=== PATIENT | female | born 1960 | race African-American/Black ===

== ENCOUNTER 2017-05-22 23:05 | Emergency (ER) | payer OTHER, SELFPAY ==
[2017-05-23] LABS: Bacteria/HPF 4+ HPF (None Seen); Bilirubin Small (Negative); Blood, Urine Trace (Negative); Glucose, Urine (Dipstick) Negative (Negative); Ketone, Urine Negative (Negative); Nitrite Negative (Negative); Protein, Urine (Dipstick) 100 mg/dL (Neg-Trace); Squamous Epithelial 21-50 HPF (0-3); Urobilinogen 0.2 mg/dL (0.2-1.0)
[2017-05-23 00:05] LABS: Hyaline Casts/LPF NONE SEEN LPF (0-3 Hyaline); RBC/HPF 0-3 HPF (0-3)
[2017-05-23 00:12] LABS: Hematocrit 44.6 % (36.0-47.0); Red Blood Cell (RBC) Count 3.94 mill/uL (4.20-5.40); White Blood Cell (WBC) Count 4.1 thou/uL (4.8-10.8)
[2017-05-23 00:21] LABS: #Lymphocytes 0.9 thou/uL (1.20-3.40); #Monocytes 0.3 thou/uL (0.11-0.59); #Neutrophils 2.9 thou/uL (1.40-6.50); %Basophils 0.2 % (0.0-1.0); %Eosinophils 0.5 % (0.0-10.0); %Lymphocytes 22.5 % (21.0-51.0); %Monocytes 6.4 % (0.0-10.0); Macrocytosis SLIGHT = 6-15 cells (100X) (0-5/hpf)
[2017-05-23 00:30] LABS: ALT (SGPT) 67 U/L (8-55); AST (SGOT) 132 U/L (5-34); Alkaline Phosphatase 84 U/L (40-150); Anion Gap 16 mmol/L (10-20); BUN (Urea Nitrogen) 6 mg/dL (9.8-20.1); Bilirubin, Total 1.3 mg/dL (0.2-1.2); Calc. Creatinine Clearance 0 mL/min (70-130); Calcium 10.2 mg/dL (7.8-10.44); Carbon Dioxide 32 mmol/L (22-29); Chloride 95 mmol/L (98-107); Estimated GFR-MDRD Greater than 90; Globulin 5.3 g/dL (2.4-3.5); Lipase 13 U/L (8-78); Protein, Total 9.5 g/dL (6.0-8.3)
[2017-05-23] MEDS ORDERED: Ondansetron HCl/PF 4 MG/2 ML Vial ONE (01:43)
[2017-05-23] MEDS ORDERED: Ketorolac Tromethamine 30 MG/ML VIAL ONE (02:51)
--- NOTE | 2017-05-23 08:12 | CT ---
PRELIMINARY REPORT/[facility]/EMERGENCY AFTER HOURS PROCEDURE: EXAM: CT Abdomen and Pelvis With Intravenous Contrast CLINICAL HISTORY: 56 years old, female; Pain; Abdominal pain; Generalized TECHNIQUE: Axial computed tomography images of the abdomen and pelvis with intravenous contrast. Coronal reformatted images were created and reviewed. CONTRAST: 100 mL of ISOVUE administered intravenously. COMPARISON: No relevant prior studies available. FINDINGS: Lower thorax: Moderate-sized hiatal hernia. ABDOMEN: Liver: Nodular hepatic peripheral contour, compatible with cirrhosis. Gallbladder and bile ducts: Normal. Pancreas: Normal. Spleen: Normal. Adrenals: Normal. Kidneys and ureters: Simple left renal cyst. Stomach and bowel: Colonic diverticulosis. Appendix: Appendix is normal. PELVIS: Bladder: Normal. Reproductive: Normal as visualized. ABDOMEN and PELVIS: Intraperitoneal space: Normal. No free air. No significant fluid collection. Bones/joints: Multilevel thoracolumbar spine degenerative changes. Degenerative changes of the hips and sacroiliac joints. No acute fracture. No dislocation. Soft tissues: Small fat containing umbilical hernia. Vasculature: Normal. No abdominal aortic aneurysm. Lymph nodes: Normal. IMPRESSION: 1. No acute findings. 2. Non-acute findings are described above. Thank you for allowing us to participate in the care of your patient. Dictated and Authenticated by: Misbah Trujillo MD 05/23/2017 1:38 AM Central Time ([place] \T\ [place]) FINAL REPORT EMERGENT AFTER HOURS CT ABDOMEN AND PELVIS WITH IV CONTRAST: DATE: 05/23/17. HISTORY: Abdominal pain with nausea, vomiting, and diarrhea. IMPRESSION: 1. Mild nodular hepatic contour. This can be seen with cirrhosis. 2. Small approximately 1.8 cm left renal cyst. 3. Colonic diverticulosis. 4. No CT evidence of appendicitis. 5. Small hiatal hernia. 6. Degenerative changes of the spine. 7. Findings are in agreement with the preliminary report by [facility]. POS: [facility]
--- NOTE | 2017-05-23 08:14 | ULT ---
PRELIMINARY REPORT/[facility]/EMERGENCY AFTER HOURS PROCEDURE: EXAM: US Abdomen Limited, Right Upper Quadrant CLINICAL HISTORY: 56 years old, female; Pain and signs and symptoms; Nausea and vomiting; Abdominal pain; Epigastric TECHNIQUE: Real-time ultrasound of the right upper quadrant with image documentation. COMPARISON: CT Abdomen Pelvis W Valente 2017-05-23 01:19 FINDINGS: Liver: Mild enlarged liver, nodular peripheral contour, compatible with cirrhosis. No focal hepatic lesions. No intrahepatic bile duct dilation. Gallbladder: Gallbladder wall measures 2 mm in thickness. No gallstones. Common bile duct: Common bile duct measures 5 mm in maximal diameter. No stones. No dilation. Pancreas: Pancreatic head and body appear unremarkable. Pancreatic tail not well-visualized, seconda ry to overlying bowel gas. Right kidney: Right kidney is normal in appearance and measures 10.7 cm in length. No stones. No hyd ronephrosis. IMPRESSION: 1. No sonographic evidence of acute right upper abdominal abnormality. 2. Cirrhosis. Thank you for allowing us to participate in the care of your patient. Dictated and Authenticated by: Misbah Trujillo MD 05/23/2017 2:54 AM Central Time ([place] \T\ [place]) FINAL REPORT EMERGENT AFTER HOURS RIGHT UPPER QUADRANT ULTRASOUND: DATE: 05/23/17. HISTORY: Abnormal laboratory values, epigastric pain. IMPRESSION: 1. Hepatomegaly with nodular peripheral contour seen suggesting cirrhosis. 2. No gallbladder calculi are seen, and the common duct is normal in caliber measuring 0.5 cm in di ameter. 3. The right kidney has a normal sonographic appearance measuring 10.7 cm in length. 4. Findings are in agreement with the preliminary report by [facility]. POS: [facility]
[2017-05-23] MEDS ORDERED: ISOVUE-370 76%-LOCM 1 ML ONE (13:26)
== END 2017-05-23 03:26 | disposition home or self-care (01) ==
LOC: ERS 23:05
DX: R10.13 Epigastric pain (principal); E11.9 Type 2 diabetes mellitus without complications; I10 Essential (primary) hypertension; F32.9 Major depressive disorder, single episode, unspecified; F41.9 Anxiety disorder, unspecified; Z79.84 Long term (current) use of oral hypoglycemic drugs; Z79.899 Other long term (current) drug therapy
CPT/HCPCS: 36415; 74177; 76705; 80053; 81003; 81015; 83690; 85025; 93005; 96374; 96375; J1885; J2405

== ENCOUNTER 2017-05-31 05:17 | Emergency (ER) | payer SELFPAY ==
[2017-05-31] MEDS ORDERED: Ondansetron HCl/PF 4 MG/2 ML Vial ONE (06:07)
[2017-05-31] MEDS ORDERED: Metoclopramide HCl 10 MG/2 ML VIAL ONE (06:37)
[2017-05-31] MEDS ORDERED: Dicyclomine 20 MG TAB ONE (06:37)
[2017-05-31 06:45] LABS: #Lymphocytes 0.8 thou/uL (1.20-3.40); #Monocytes 0.2 thou/uL (0.11-0.59); #Neutrophils 3.5 thou/uL (1.40-6.50); %Basophils 0.2 % (0.0-1.0); %Eosinophils 0.3 % (0.0-10.0); %Lymphocytes 17.6 % (21.0-51.0); Band 1 % (5-11); Hematocrit 45.4 % (36.0-47.0); Mean Platelet Volume 7.8 fL (7.4-10.4); Neutrophil 81 % (42-75); Red Blood Cell (RBC) Count 4.11 mill/uL (4.20-5.40); White Blood Cell (WBC) Count 4.5 thou/uL (4.8-10.8)
[2017-05-31 06:48] LABS: ALT (SGPT) 70 U/L (8-55); AST (SGOT) 144 U/L (5-34); Alkaline Phosphatase 86 U/L (40-150); Anion Gap 19 mmol/L (10-20); BUN (Urea Nitrogen) 9 mg/dL (9.8-20.1); Bilirubin, Total 1.6 mg/dL (0.2-1.2); Calc. Creatinine Clearance 0 mL/min (70-130); Calcium 9.6 mg/dL (7.8-10.44); Carbon Dioxide 25 mmol/L (22-29); Chloride 100 mmol/L (98-107); Estimated GFR-MDRD 79; Globulin 5.4 g/dL (2.4-3.5); Lipase 11 U/L (8-78); Protein, Total 9.7 g/dL (6.0-8.3)
[2017-05-31 08:15] LABS: Bilirubin Unable to Interpret (Negative); Blood, Urine Unable to Interpret (Negative); Glucose, Urine (Dipstick) Unable to Interpret mg/dL (Negative); Ketone, Urine Unable to Interpret mg/dL (Negative); Nitrite Unable to Interpret (Negative); Protein, Urine (Dipstick) Unable to Interpret mg/dL (Neg-Trace); Urobilinogen UNABLE TO INTERPRET mg/dL (0.2-1.0)
[2017-05-31 08:22] LABS: Bacteria/HPF None Seen HPF (None Seen); Hyaline Casts/LPF 0-3 HYALINE CAST LPF (0-3 Hyaline); RBC/HPF 0-3 HPF (0-3); Renal Epithelial 0-3 HPF (0-3); Transitional Epithelial 0-3 HPF (0-3); WBC/HPF 0-3 HPF (0-3); Yeast-All Forms None Seen HPF (None Seen)
== END 2017-05-31 08:58 | disposition home or self-care (01) ==
LOC: ERS 05:17
DX: R10.12 Left upper quadrant pain (principal); R10.11 Right upper quadrant pain; E11.9 Type 2 diabetes mellitus without complications; F32.9 Major depressive disorder, single episode, unspecified; F41.9 Anxiety disorder, unspecified; I10 Essential (primary) hypertension; Z79.84 Long term (current) use of oral hypoglycemic drugs; Z79.899 Other long term (current) drug therapy
CPT/HCPCS: 36415; 36416; 80053; 81003; 81015; 83690; 85025; 96361; 96365; 96375; J2405; J2765

== ENCOUNTER 2017-08-11 22:29 | Emergency (ER) | payer SELFPAY ==
--- NOTE | 2017-08-11 23:12 | RAD ---
CHEST ONE VIEW 08/11/17 HISTORY: Cough. COMPARISON: None. FINDINGS: Heart size is upper limits of normal. No pneumothorax. No focal air space consolidation. No acute osseous abnormality. IMPRESSION: Mild cardiomegaly. POS: [facility]
[2017-08-11 23:23] LABS: Hemoglobin 13.9 g/dL (12.0-16.0); Mean Corpuscular HGB CONC 32.9 g/dL (32.0-36.0); Mean Corpuscular Hemoglobin 37.4 pg (27.0-31.0); Mean Platelet Volume 7.6 fL (7.4-10.4); Platelet Count 216 thou/uL (130-400); RBC Distribution Width 14.3 % (11.5-14.5); Red Blood Cell (RBC) Count 3.72 mill/uL (4.20-5.40); White Blood Cell (WBC) Count 4.2 thou/uL (4.8-10.8)
[2017-08-11 23:29] LABS: ALT (SGPT) 58 U/L (8-55); AST (SGOT) 143 U/L (5-34); Albumin 4.2 g/dL (3.5-5.0); Alkaline Phosphatase 90 U/L (40-150); Anion Gap 22 mmol/L (10-20); BUN (Urea Nitrogen) 6 mg/dL (9.8-20.1); Bilirubin, Total 1.3 mg/dL (0.2-1.2); Calc. Creatinine Clearance 0 mL/min (70-130); Calcium 10.1 mg/dL (7.8-10.44); Carbon Dioxide 24 mmol/L (22-29); Chloride 98 mmol/L (98-107); Estimated GFR-MDRD Greater than 90; Globulin 5.1 g/dL (2.4-3.5); Glucose 108 mg/dL (70-105); Lipase 11 U/L (8-78); Protein, Total 9.3 g/dL (6.0-8.3); Sodium 140 mmol/L (136-145)
[2017-08-11 23:41] LABS: #Lymphocytes 0.7 thou/uL (1.20-3.40); #Monocytes 0.2 thou/uL (0.11-0.59); #Neutrophils 3.2 thou/uL (1.40-6.50); %Basophils 0.2 % (0.0-1.0); %Eosinophils 0.3 % (0.0-10.0); %Lymphocytes 17.4 % (21.0-51.0); %Monocytes 5.6 % (0.0-10.0); %Neutrophils 76.6 % (42.0-75.0); MDiff Complete? YES; Macrocytosis MODERATE=16-30 cells (100X) (0-5/hpf); PLT Morphology Comment Appears Adequate
[2017-08-11 23:56] LABS: CKMB 0.7 ng/mL (0-6.6); Troponin I Less than 0.010 ng/mL (< 0.028)
[2017-08-12] MEDS ORDERED: diphenhydrAMINE 50 MG/ML VIAL ONE (00:42)
[2017-08-12] MEDS ORDERED: Fentanyl 100 MCG/2 ML VIAL ONE (00:42)
[2017-08-12] MEDS ORDERED: Metoclopramide HCl 10 MG/2 ML VIAL ONE (00:42)
--- NOTE | 2017-08-12 13:53 | ULT ---
PRELIMINARY REPORT/[facility]/EMERGENCY AFTER HOURS PROCEDURE: EXAM: US Abdomen Limited, Right Upper Quadrant CLINICAL HISTORY: 57 years old, female; Abnormal findings; Abnormal lab test; Elevated liver enzymes and other: Hepatom egaly TECHNIQUE: Real-time ultrasound of the right upper quadrant with image documentation. COMPARISON: No relevant prior studies available. FINDINGS: Liver: Liver is enlarged at 20.1 cm and demonstrates diffuse fatty infiltration. No solid mass is priscilla ntified. No intrahepatic bile duct dilation. Gallbladder: No acute findings. No gallstones. Common bile duct: 4 mm. Unremarkable as visualized. No stones. No dilation. Pancreas: Unremarkable as visualized. Right kidney: No acute findings. No stones. No solid mass. No hydronephrosis. IMPRESSION: Enlarged, fatty liver. No gallstones or biliary dilation. Thank you for allowing us to participate in the care of your patient. Dictated and Authenticated by: Dariusz Navarrete MD 08/12/2017 2:51 AM Central Time ([place] & [place]) FINAL REPORT GALLBLADDER ULTRASOUND: FINDINGS/IMPRESSION: I agree with the preliminary interpretation provided. No acute gallbladder pathology. Increased echogenicity of the liver, which can be seen secondary to hepatic steatosis. Correlate cli nically. POS: [facility]
--- NOTE | 2017-09-01 22:41 | EKG ---
Test Reason : Blood Pressure : / mmHG Vent. Rate : 094 BPM Atrial Rate : 094 BPM P-R Int : 142 ms QRS Dur : 078 ms QT Int : 370 ms P-R-T Axes : 062 -07 002 degrees QTc Int : 462 ms Normal sinus rhythm Minimal voltage criteria for LVH, may be normal variant Possible Inferior infarct , age undetermined Possible Anterior infarct , age undetermined Abnormal ECG Confirmed by CASI WARNER ([id number]), data specialist GEOVANNI TYSON ([id number]) on 09/01/2017 10:40:36 PM Referred By: Confirmed By:CASI WARNER
== END 2017-08-12 03:20 | disposition home or self-care (01) ==
LOC: ERS 22:29
DX: E11.43 Type 2 diabetes mellitus with diabetic autonomic (poly)neuropathy (principal); K31.84 Gastroparesis; I10 Essential (primary) hypertension; F32.9 Major depressive disorder, single episode, unspecified; F41.9 Anxiety disorder, unspecified; Z79.899 Other long term (current) drug therapy
CPT/HCPCS: 36416; 71045; 76705; 80053; 82553; 83690; 84484; 85025; 87804; 93005; 96365; 96366; 96375; J1200; J2765; J3010

== ENCOUNTER 2017-10-25 08:12 | Observation (INO) | payer SELFPAY ==
[2017-10-25] MEDS ORDERED: Mag-Al 1200 mg/1200 mg/30 ML UDCUP ONE (10:02)
[2017-10-25] MEDS ORDERED: Lidocaine Viscous Sol 2% 15 ml UD Cup ONE (10:02)
[2017-10-25 10:03] LABS: Hemoglobin 13.7 g/dL (12.0-16.0); Mean Corpuscular HGB CONC 33.1 g/dL (32.0-36.0); Mean Corpuscular Hemoglobin 37.7 pg (27.0-31.0); Platelet Count 271 thou/uL (130-400); RBC Distribution Width 13.9 % (11.5-14.5); Red Blood Cell (RBC) Count 3.63 mill/uL (4.20-5.40); White Blood Cell (WBC) Count 3.5 thou/uL (4.8-10.8)
[2017-10-25 10:13] LABS: ALT (SGPT) 56 U/L (8-55); AST (SGOT) 125 U/L (5-34); Alkaline Phosphatase 95 U/L (40-150); Anion Gap 18 mmol/L (10-20); BUN (Urea Nitrogen) 4 mg/dL (9.8-20.1); Bilirubin, Total 0.7 mg/dL (0.2-1.2); Calc. Creatinine Clearance 0 mL/min (70-130); Calcium 9.7 mg/dL (7.8-10.44); Carbon Dioxide 27 mmol/L (22-29); Chloride 103 mmol/L (98-107); Estimated GFR-MDRD Greater than 90; Potassium 3.7 mmol/L (3.5-5.1); Sodium 144 mmol/L (136-145)
[2017-10-25 10:17] LABS: Glucose 51 mg/dL (70-105)
[2017-10-25 10:26] LABS: #Lymphocytes 1.1 thou/uL (1.20-3.40); #Monocytes 0.1 thou/uL (0.11-0.59); #Neutrophils 2.2 thou/uL (1.40-6.50); %Basophils 0.6 % (0.0-1.0); %Eosinophils 0.8 % (0.0-10.0); %Lymphocytes 32.3 % (21.0-51.0); %Monocytes 3.6 % (0.0-10.0); %Neutrophils 62.6 % (42.0-75.0); MDiff Complete? YES; Macrocytosis SLIGHT = 6-15 cells (100X) (0-5/hpf)
[2017-10-25] MEDS ORDERED: Ondansetron HCl/PF 4 MG/2 ML Vial ONE (10:56)
[2017-10-25 11:15] LABS: Bilirubin Negative (Negative); Blood, Urine Negative (Negative); Glucose, Urine (Dipstick) Negative (Negative); Leukocyte Negative (Negative); Nitrite Negative (Negative); Protein, Urine (Dipstick) 30 mg/dL (Neg-Trace)
[2017-10-25 11:20] LABS: Clarity Clear (Clear)
[2017-10-25 11:36] LABS: Bacteria/HPF None Seen HPF (None Seen); Hyaline Casts/LPF 0-3 HYALINE CAST LPF (0-3 Hyaline); RBC/HPF 0-3 HPF (0-3); WBC/HPF 0-3 HPF (0-3)
[2017-10-25] MEDS ORDERED: Dextrose 50% Abboject 50 ML SYRINGE ONE (11:48)
[2017-10-25] MEDS ORDERED: Dextrose 5% in Water 1,000 ML IV PRN (11:50)
[2017-10-25] MEDS ORDERED: HumaLOG 300 UNITS/3 ML VIAL SC PRN ×2 (11:50)
[2017-10-25] MEDS ORDERED: HYDROcodone/Acetaminophen 5/325 mg Tablet PO PRN (11:50)
[2017-10-25 12:13] LABS: Hemoglobin A1c 5.1 % (4.0-6.0)
[2017-10-25] MEDS ORDERED: Acetaminophen 325 MG TAB PO PRN (13:31)
[2017-10-25 13:32] VITALS: BMI 49.1
[2017-10-25] MEDS: Dextrose 10% in Water 1,000 ML IV SCH (14:41)
[2017-10-25] MEDS: Dextrose 50% Abboject 50 ML SYRINGE SLOW IVP PRN ×2 (15:51→19:45)
[2017-10-25] MEDS: Ondansetron HCl/PF 4 MG/2 ML Vial IVP PRN ×2 (16:40→23:06)
--- NOTE | 2017-10-25 17:04 | HP ---
DATE OF CONSULTATION: 10/25/2017 CHIEF COMPLAINT: Low blood sugars at home. HISTORY OF PRESENT ILLNESS: This is a 57-year-old morbidly obese female. She has k nown history of type 2 diabetes mellitus, on oral hypoglycemic and glipizide. She usually takes glip izide in the morning at around 7:00 a.m. at breakfast, but yesterday evening she took around 4:00 p.m . instead of morning and she went to her brother's house and had a dinner over there and when she ret urned home, she fell asleep in the morning and she was very lethargic and was sweating and having pal pitations. She is unable to talk and she was having slurred speech, and with increased sweating, she decided to call 911 and was unable to call after struggling to dial for a couple of minutes. Once t he EMS arrived, the patient was found to have blood sugars in 50s and she was immediately given orang e juice and was brought to the ER. The patient had a persistent drop in the blood sugars even in the ER even on 5% dextrose and D50 was also given. Her blood sugars went up to 80 and she remained symp tomatic. The patient was admitted with 10% dextrose and was closely monitored. The patient has a kn own history of hypertension and hyperlipidemia, both are well controlled. She is morbidly obese and she is trying to lose weight and she has bilateral knee replacements, and trying to walk and lose gigi ght. PAST MEDICAL HISTORY: 1. Type 2 diabetes mellitus. 2. Morbid obesity. 3. Hypertension. 4. Hyperlipidemia. PAST SURGICAL HISTORY: Bilateral knee replacement. SOCIAL HISTORY: No history of smoking. She does drink alcohol occasionally. No history of illicit drug use. She lives by herself. FAMILY HISTORY: No significant family history of coronary artery disease or premature deaths in the family. ALLERGIES: No known drug allergies. HOME MEDICATIONS: Omeprazole 10 mg p.o. daily, glipizide 5 mg p.o. daily, enalapril 10 mg p.o. daily , hydrochlorothiazide 25 mg p.o. daily. REVIEW OF SYSTEMS: All 12 systems are reviewed with the patient thoroughly and found to be negative at this time. Systems reviewed are HEENT, CVS, ME[employer]ING TE[employer]ER, respiratory, GI, and . All other systems revi ewed and found to be negative. Constitutional: Weight loss or gain, sense of well-being, ability to conduct usual activities, exerc ise tolerance. Skin/Breast: Rash, itching, changes in hair growth or loss, nail changes, breast lumps, tenderness, swelling, nipple discharge. Eyes: Vision, double vision, tearing, blind spots, pain. ENT/Mouth: Headaches (location, time of onset, duration, precipitating factors), vertigo, lightheadedness, injury. Vision, double vision, tearing, blind spots, pain, nose b leeding, colds, obstruction, discharge, dental difficulties, gingival bleeding, dentures, neck stiffn ess, pain, tenderness, masses in thyroid or other areas Cardiovascular: Precordial pain, substernal distress, palpitations, syncope, dyspnea on exertion, or thopnea, nocturnal paroxysmal dyspnea, edema, cyanosis, hypertension, heart murmurs, varicosities, ph lebitis, claudication. Respiratory: Pain, shortness of breath, wheezing, stridor, cough, hemoptysis, fever or night sweats Gastrointestinal: Poor appetite, dysphagia, indigestion, abdominal pain, heartburn, eructation, naus ea, vomiting, hematemesis, jaundice, constipation, or diarrhea, abnormal stools (otto-colored, tarry, bloody, greasy, foul smelling), flatulence, hemorrhoids, recent changes in bowel habits. Genitourinary: Urgency, frequency, dysuria, nocturia, hematuria, polyuria, oliguria, unusual (or susie nge in) color of urine, stones, hesitancy, change in size of stream, dribbling, acute retention or in continence, libido, potency. Musculoskeletal: Pain, swelling, redness or heat of muscles or joints, limitation, of motion, muscular weakness, atrophy, cramps. Neurologic/Psychiatric: Convulsions, paralyses, tremor, incoordination, parasthesias, difficulties w ith memory of speech, sensory or motor disturbances, or muscular coordination (ataxia, tremor), emoti onal problems, anxiety, depression, previous psychiatric care, unusual perceptions, hallucinations. Allergy/Immunologic: Skin rash, anemia, bleeding tendency, polydipsia, polyuria, intolerance to heat or cold. PHYSICAL EXAMINATION: VITAL SIGNS: Blood pressures are 146/81, heart rate is 85, respiration is 18, saturation 98% on room air. GENERAL: The patient is moderately built, moderately nourished, she does not appear to be in acute d istress. CARDIOVASCULAR: S1, S2 normal. No murmurs, rubs or gallops. LUNGS: Bilateral entry was equal. No wheezing, no crackles. ABDOMEN: Soft, nontender, no guarding, no rebound tenderness. Bowel sounds normal. MUSCULOSKELETAL: No calf tenderness. No pedal edema. No joint tenderness, no joint swelling. SKIN: No cyanosis, no erythema. Rash was noted on the right upper nostril, has a scaly appearance m ost likely looks like atopic dermatitis. PSYCHIATRIC: No signs of suicidal ideation. No signs of rob. No signs of depression. NECK: No thyromegaly. No lymphadenopathy was noted. LABORATORY DATA: WBC 23.5, hemoglobin 13.7, hematocrit is 41.4, platelets are 271. Sodium 144, pota ssium 3.7, chloride 103, bicarbonate 27, BUN is 4, creatinine 0.6. Blood sugars are 57. His elevated liver enzymes, AST of 125, ALT of 56. ASSESSMENT AND PLAN: 1. Acute severe hypoglycemia. 2. Morbid obesity. 3. Elevated liver enzymes. 4. Hypertension. 5. Hyperlipidemia. PLAN: 1. Plan is to continue the patient on D10 at this time at 75 mL an hour and we will closely monitor and for any hypoglycemic episodes, we will treat with hypoglycemia protocol with 50% dextrose. We wi ll hold off on the glipizide at this time and also metformin. Plan to restart glipizide in the [facility] if the blood sugars are adequately elevated with a lower dose. I will encourage the patient to us e metformin for lesser hypoglycemic effects and the patient is morbidly obese, which would be the priscilla al medication for her. We will do a diabetic education with the nurse. 2. The patient is morbidly obese. We encouraged the patient to walk and lose weight for better cont rol of blood sugars. 3. The patient has hypertension, well controlled. We will continue to monitor. Restart the patient 's home medications. 4. Hyperlipidemia. We will continue the patient on atorvastatin. 5. DVT prophylaxis with Lovenox. I spent 75 minutes of this patient.
[2017-10-25] MEDS: Docusate 100 MG CAP PO SCH (20:31)
[2017-10-25] MEDS ORDERED: Famotidine 20 MG TAB PO SCH (21:00)
--- NOTE | 2017-10-25 21:17 | RAD ---
RADIOGRAPH ABDOMEN 1 VIEW: 10/25/17 HISTORY: 57-year-old female with intractable nausea. FINDINGS: the stomach is decompressed. There is a minimal amount of bowel gas in the right lower quadrant, prob ably in the proximal right colon. Small amount of gas in the lower pelvis near midline is probably in the rectum. Otherwise, there is lack of bowel gas. IMPRESSION: Paucity of bowel gas makes it difficult to evaluate the intestines. POS: [facility]
[2017-10-25] MEDS ORDERED: hydrALAZINE 20 MG/ML VIAL SLOW IVP PRN (21:23)
[2017-10-25] MEDS ORDERED: Promethazine HCl 25 MG/ML VIAL SLOW IVP SCH (21:30)
--- NOTE | 2017-10-25 21:36 | ULT ---
GALLBLADDER ULTRASOUND: 10/25/17 Reference made to 08/12/17. INDICATION: Increased liver enzymes. FINDINGS: There is redemonstration of coarsened echotexture of the hepatic parenchyma with increased echogenici ty. Persistent areas of shadowing do limit visualization of the right upper quadrant. There is no def inite acute gallbladder pathology seen. There are low level echoes of the gallbladder which could rel ate to reverberation artifact. Possibility of gallbladder sludge is not excluded. Gallbladder wall is normal at 1 mm in thickness. Common duct is normal measuring 4 mm in diameter. There is no significa nt ascites. IMPRESSION: Grossly stable evaluation, with findings that may reflect hepatic steatosis and/or component of hepat ocellular disease. There is no acute gallbladder pathology. POS: [facility]
[2017-10-25] MEDS ORDERED: Pantoprazole 40 MG VIAL IVP SCH (23:45)
[2017-10-26] MEDS ORDERED: Promethazine HCl 25 MG/ML VIAL SLOW IVP PRN
[2017-10-26] MEDS: Morphine 5 MG/ML SYRINGE SLOW IVP PRN ×2 (00:51→05:28)
[2017-10-26] MEDS: Dextrose 10% in Water 1,000 ML IV SCH ×2 (02:15→08:59)
[2017-10-26 04:37] LABS: Anion Gap 15 mmol/L (10-20); BUN (Urea Nitrogen) 4 mg/dL (9.8-20.1); Calc. Creatinine Clearance 171 mL/min (70-130); Calcium 9.7 mg/dL (7.8-10.44); Carbon Dioxide 31 mmol/L (22-29); Chloride 96 mmol/L (98-107); Estimated GFR-MDRD Greater than 90; Glucose 180 mg/dL (70-105); Potassium 3.5 mmol/L (3.5-5.1); Sodium 138 mmol/L (136-145)
[2017-10-26 04:55] LABS: Band 2 % (5-11); Hemoglobin 13.4 g/dL (12.0-16.0); Lymphocytes 20 % (21-51); MDiff Complete? YES; Mean Corpuscular HGB CONC 32.2 g/dL (32.0-36.0); Mean Corpuscular Hemoglobin 37.4 pg (27.0-31.0); Mean Platelet Volume 7.4 fL (7.4-10.4); Monocytes 2 % (0-10); Neutrophil 76 % (42-75); Nucleated RBC 2 % (0); PLT Morphology Comment Appears Adequate; Platelet Count 238 thou/uL (130-400); RBC Distribution Width 13.7 % (11.5-14.5); Red Blood Cell (RBC) Count 3.58 mill/uL (4.20-5.40); White Blood Cell (WBC) Count 4.9 thou/uL (4.8-10.8)
[2017-10-26] MEDS: Ondansetron HCl/PF 4 MG/2 ML Vial IVP PRN (05:21)
[2017-10-26] MEDS: Docusate 100 MG CAP PO SCH (08:57)
[2017-10-26] MEDS ORDERED: Hydrochlorothiazide 25 MG TAB PO SCH (09:00)
[2017-10-26] MEDS ORDERED: Pantoprazole 40 MG VIAL IVP SCH ×2 (09:00→21:00)
[2017-10-26] MEDS ORDERED: Enoxaparin Sodium 40 MG/0.4 ML SYRINGE SC SCH (09:00)
[2017-10-26 11:01] VITALS: BP 130/60; TEMP 99
--- NOTE | 2017-10-26 12:57 | DIS ---
DATE OF ADMISSION: 10/25/2017 DATE OF DISCHARGE: 10/26/2017 ADMITTING DIAGNOSIS: Acute hypoglycemia. DISCHARGE DIAGNOSIS: Acute symptomatic hypoglycemia from type 2 diabetes mellitus. SECONDARY DIAGNOSES 1. Hypertension, uncontrolled. 2. Morbid obesity. 3. Fungal infection on the skin on the face. HISTORY OF PRESENT ILLNESS AND HOSPITAL COURSE: In brief, this is a 57-year-old morbidly obese [place] female with a known history of type 2 diabetes mellitus diagnosed 1 year ago and she has been initially started on metformin and because of the side effects of diarrhea and loose stool, it w as stopped and the patient was started on glipizide. The patient presented with low blood sugars in the 50s and A1c was checked which was 5.1 and the patient was not in the diabetic range. The patient continues to have low blood sugars with the glipizide and was started on 10% dextrose which did impr ove her blood sugars but only until 180s. It was discussed with the patient that the patient would n ot needing glipizide to take as she would in fact benefit with metformin. With a low dose metformin, side effects would be much better and it will also help in losing weight. I also encouraged the ivett becker to stop taking hydrochlorothiazide which has a tendency to cause hyperglycemia and advised to ch shauna to amlodipine 10 mg daily. I explained about the skin infection on the face which looked more l elodia a fungal infection, so I advised the patient to start on nystatin-triamcinolone ointment. The johnny goetz is counseled very well on the day of discharge and was discharged home in stable condition. PHYSICAL EXAMINATION: VITAL SIGNS: Blood pressures are 130/60, heart rate is 94, respiration is 19, saturating 92%. CARDIOVASCULAR: S1, S2 normal. LUNGS: Bilateral air entry was equal. ABDOMEN: Soft, nontender, no guarding, no rebound tenderness. Bowel sounds normal. MUSCULOSKELETAL: No calf tenderness. No pedal edema. SKIN: Rash on the right nostril area suggestive of a possible fungal infection. HOME MEDICATIONS: Omeprazole 20 mg p.o. daily, enalapril 10 mg p.o. daily. NEW MEDICATIONS: Amlodipine 5 mg p.o. daily, metformin 500 mg ER daily, nystatin-triamcinolone ointm ent 15 grams topical application twice a day for 2 weeks. DISCHARGE INSTRUCTIONS: Continue activity as tolerated. Advised to improve physical activity and pl an to lose weight and advised to continue other medications prescribed. Follow up with the free clin ic in 2-3 weeks. I spent 35 minutes with this patient.
== END 2017-10-26 13:06 | disposition home or self-care (01) ==
LOC: ERS 08:12 → 2SW 11:21
PROVIDERS: ADMIT Family Medicine; ATTEND Family Medicine
DX: E11.649 Type 2 diabetes mellitus with hypoglycemia without coma (principal); E66.01 Morbid (severe) obesity due to excess calories; B35.9 Dermatophytosis, unspecified; I10 Essential (primary) hypertension; E78.5 Hyperlipidemia, unspecified; R94.5 Abnormal results of liver function studies; Z68.42 Body mass index [BMI] 45.0-49.9, adult; Z79.84 Long term (current) use of oral hypoglycemic drugs; Z79.899 Other long term (current) drug therapy; Z96.653 Presence of artificial knee joint, bilateral
CPT/HCPCS: 36415; 36416; 51701; 74018; 76705; 80048; 80053; 81003; 81015; 83036; 85025; 96361; 96372; 96374; 96375; 96376; J2270; A4216; A4353; C9113; G0378; J1650; J2405; J2550

== ENCOUNTER 2018-01-03 00:47 | Emergency (ER) | payer SELFPAY ==
[2018-01-03] MEDS ORDERED: Adacel (T-DAP) 0.5 ML VIAL ONE (00:58)
[2018-01-03] MEDS ORDERED: Lidocaine 1% w/Epinephrine 1:100K 20 ML VIAL ONE (00:58)
--- NOTE | 2018-01-03 08:42 | RAD ---
LEFT KNEE 4 VIEWS: Date: 01/03/18 HISTORY: Fall, injury, left knee pain. FINDINGS/IMPRESSION: There are postop changes of total knee arthroplasty in good position and alignment. No acute fracture or dislocation is identified. POS: [facility]
== END 2018-01-03 03:00 | disposition home or self-care (01) ==
LOC: ERS 00:47
DX: S81.012A Laceration without foreign body, left knee, initial encounter (principal); E11.9 Type 2 diabetes mellitus without complications; I10 Essential (primary) hypertension; F32.9 Major depressive disorder, single episode, unspecified; F41.9 Anxiety disorder, unspecified; Z79.899 Other long term (current) drug therapy; W01.110A Fall on same level from slipping, tripping and stumbling with subsequent striking against sharp glass, initial encounter
CPT/HCPCS: 12004; 90471; 90715; J2001